=== PATIENT | female | born 1965 | race Caucasian/White ===

== ENCOUNTER 2018-05-05 13:01 | Outpatient (CLI) | payer OTHER | END 2018-05-05 13:23 | disposition home or self-care (01) | LOC: MAMO-SONO 13:01 | DX: N60.11 Diffuse cystic mastopathy of right breast (principal); N60.12 Diffuse cystic mastopathy of left breast; Z12.31 Encounter for screening mammogram for malignant neoplasm of breast ==

== ENCOUNTER 2018-09-02 13:43 | Outpatient (CLI) | payer OTHER | END 2018-09-02 13:46 | disposition home or self-care (01) | LOC: SONOGRAMA 13:43 → MAMO-SONO 09-03 13:15 | DX: R10.2 Pelvic and perineal pain (principal) ==

== ENCOUNTER 2018-09-27 14:44 | Outpatient (CLI) | payer OTHER | END 2018-09-27 15:11 | disposition home or self-care (01) | LOC: RAD 14:44 | DX: M54.2 Cervicalgia (principal) ==

== ENCOUNTER → 2018-09-27 | Outpatient (CLI) | payer OTHER | END | disposition home or self-care (01) | LOC: NUCLEAR 14:00 | DX: M81.0 Age-related osteoporosis without current pathological fracture (principal) ==

== ENCOUNTER → 2021-06-07 08:10 | Outpatient (CLI) | payer OTHER | END | disposition home or self-care (01) | LOC: SONOGRAMA 08:10 | PROVIDERS: ATTEND Internal Medicine | DX: R10.84 Generalized abdominal pain (principal) ==

== ENCOUNTER 2021-06-10 12:36 | Outpatient (CLI) | payer OTHER | END 2021-06-10 13:00 | disposition home or self-care (01) | LOC: MAMO-SONO 12:36 | PROVIDERS: ATTEND Internal Medicine | DX: N60.11 Diffuse cystic mastopathy of right breast (principal); N60.12 Diffuse cystic mastopathy of left breast ==

== ENCOUNTER 2022-08-13 13:22 | Outpatient (CLI) | payer OTHER | END 2022-08-13 14:15 | disposition home or self-care (01) | LOC: MAMO-SONO 13:22 | PROVIDERS: ATTEND Internal Medicine | DX: N60.11 Diffuse cystic mastopathy of right breast (principal); N60.12 Diffuse cystic mastopathy of left breast; M26.609 Unspecified temporomandibular joint disorder, unspecified side ==

== ENCOUNTER 2023-01-19 12:46 | Outpatient (CLI) | payer OTHER | END 2023-01-19 12:55 | disposition home or self-care (01) | LOC: SONOGRAMA 12:46 | PROVIDERS: ATTEND Internal Medicine | DX: N60.11 Diffuse cystic mastopathy of right breast (principal) ==

== ENCOUNTER 2024-04-21 11:51 | Emergency (ER) | payer OTHER ==
[~2024-04-21] VITALS: Ht 154.9 cm; Wt 76.2 kg
[2024-04-21] MEDS ORDERED: TAMSULOSIN HCL 0.4 MG CAP PO ONE ×2 (13:15→13:32)
[2024-04-21] MEDS ORDERED: KETOROLAC TROMETHAMINE 60 MG VIAL IM ONE ×2 (13:15→13:32)
[2024-04-21 14:16] LABS: HEMATOCRIT 41.5 % (36.0-45.00); HEMOGLOBIN 13.8 g/dL (12.0-15.00); MEAN CELL VOLUME 88.1 fL (80.00-100.00); MEAN CORPUSCULAR HEMOGLOBIN 29.3 pg (27.00-32.0); MEAN CORPUSCULAR HGB CONC 33.3 g/dl (32.0-36.0); PLATELET COUNT 304 K/uL (150-450); RED BLOOD COUNT 4.71 M/uL (4.00-6.00)
[2024-04-21 14:35] LABS: PH,URINE 6.5 (5.0-8.0); URINE APPEARANCE Clear; URINE BILIRRUBIN Negative (NEGATIVE); URINE BLOOD Moderate; URINE COLOR Yellow; URINE GLUCOSE Negative (NEGATIVE); URINE LEUKOCYTE Small; URINE NITRATE Negative; URINE PROTEIN 30 (NEGATIVE); URINE UROBILINOGEN 0.2 E.U./dl
[2024-04-21 14:37] LABS: URINE BACTERIA 646.1 uL (0.0-1933); URINE CAST 2.06 uL (0.0-1.40); URINE RBC 184.8 uL (0.0-20.8); URINE WBC 95.7 uL (0.0-23.2)
[2024-04-21 15:25] LABS: URINE KETONE 40 (NEGATIVE)
== END 2024-04-21 17:22 | disposition home or self-care (01) ==
LOC: ER 11:53
PROVIDERS: Emergency Medicine
DX: N20.0 Calculus of kidney (principal); R10.9 Unspecified abdominal pain; Z88.8 Allergy status to other drugs, medicaments and biological substances

== ENCOUNTER 2024-04-23 12:32 | Inpatient (IN) | payer OTHER ==
[~2024-04-23] VITALS: Ht 157.5 cm; Wt 159.7 kg
[2024-04-23] MEDS ORDERED: CLONAZEPAM1 M1 PO (13:25)
[2024-04-23] MEDS ORDERED: 0.9 % SODIUM CHLORIDE 1,000 ML IV ONE (13:45)
[2024-04-23] MEDS ORDERED: KETOROLAC TROMETHAMINE 30 MG VIAL ONE ×2 (13:57→20:43)
[2024-04-23] MEDS ORDERED: CEFTRIAXONE SODIUM 1,000 MG VIAL ONE (13:58)
[2024-04-23] MEDS ORDERED: ONDANSETRON HCL 2 MG/ML VIAL ONE (13:58)
[2024-04-23] MEDS ORDERED: ACETAMINOPHEN 500 MG GEL..CAP PO ONE ×2 (13:58→14:00)
[2024-04-23] MEDS ORDERED: HYOSCYAMINE SULFATE 0.125 MG TAB.SUBL ONE (13:58)
[2024-04-23] MEDS ORDERED: HYOSCYAMINE SULFATE 0.125 MG TAB.SUBL SL ONE (14:00)
[2024-04-23] MEDS ORDERED: KETOROLAC TROMETHAMINE 15 MG VIAL IV ONE (14:00)
[2024-04-23] MEDS ORDERED: ONDANSETRON HCL 2 MG/ML VIAL IV ONE (14:00)
[2024-04-23] MEDS ORDERED: CEFTRIAXONE SODIUM 1,000 MG VIAL IV ONE (14:00)
[2024-04-23 14:43] LABS: HEMOGLOBIN 12.2 g/dL (12.0-15.00); MEAN CELL VOLUME 86.6 fL (80.00-100.00); MEAN CORPUSCULAR HEMOGLOBIN 29.5 pg (27.00-32.0); PLATELET COUNT 214 K/uL (150-450); RED BLOOD COUNT 4.15 M/uL (4.00-6.00)
[2024-04-23 14:44] LABS: PH,URINE 6.5 (5.0-8.0); URINE APPEARANCE Clear; URINE BILIRRUBIN Negative (NEGATIVE); URINE BLOOD Moderate; URINE COLOR Yellow; URINE GLUCOSE Negative (NEGATIVE); URINE KETONE Negative (NEGATIVE); URINE LEUKOCYTE Moderate; URINE NITRATE Negative; URINE PROTEIN Negative (NEGATIVE); URINE UROBILINOGEN 0.2 E.U./dl
[2024-04-23 14:45] LABS: URINE BACTERIA 937.2 uL (0.0-1933); URINE EPITHELIAL CELLS 15.9 uL (0.0-38.8); URINE WBC 67.8 uL (0.0-23.2)
[2024-04-23 15:08] LABS: ALBUMIN 2.9 gm/dL (3.4-5.0); CALCIUM 8.9 mg/dL (8.5-10.1); CREATININE SERUM 0.66 mg/dL (0.55-1.02); GFR 91.98; GLOBULINA 4.7 G/DL (2.4-3.5); TOTAL PROTEIN 7.6 gm/dL (6.4-8.2)
[2024-04-23 15:12] LABS: POTASSIUM 2.42 mEq/L (3.5-5.1)
[2024-04-23] MEDS ORDERED: POTASSIUM CHLORIDE IN 0.9%NACL 40 MEQ/1,000 ML PIGGYBAG IV ONE (15:15)
[2024-04-23] MEDS ORDERED: CEFTRIAXONE SODIUM 2,000 MG in DEXTROSE 5 % IN WATER 100 ML IV SCH (20:13)
[2024-04-23] MEDS ORDERED: KETOROLAC TROMETHAMINE 30 MG VIAL IV PRN (20:15)
[2024-04-23] MEDS ORDERED: 0.9 % SODIUM CHLORIDE 1,000 ML IV SCH (20:15)
[2024-04-23] MEDS ORDERED: ACETAMINOPHEN 325 MG TABLET PO PRN (20:15)
[2024-04-23] MEDS ORDERED: CLONAZEPAM 1 MG TABLET PO PRN (20:30)
[2024-04-23 23:16] VITALS: BP 151/85; O2SAT 96
[2024-04-24] MEDS ORDERED: POTASSIUM CHLORIDE IN WATER 40 MEQ/100 ML PIGGYBAG IV SCH (01:00)
[2024-04-24 08:15] LABS: ALBUMIN 2.8 gm/dL (3.4-5.0); BILIRUBIN TOTAL 0.61 mg/dL (0.3-1.2); CALCIUM 8.2 mg/dL (8.5-10.1); CREATININE SERUM 0.65 mg/dL (0.55-1.02); GFR 93.62; GLOBULINA 3.5 G/DL (2.4-3.5); POTASSIUM 3.29 mEq/L (3.5-5.1); TOTAL PROTEIN 6.3 gm/dL (6.4-8.2)
[2024-04-24] MEDS ORDERED: TAMSULOSIN HCL 0.4 MG CAP PO SCH (09:00)
[2024-04-24] MEDS ORDERED: FAMOTIDINE/PF 20 MG/2 ML VIAL IV SCH (09:00)
[2024-04-24 10:07] VITALS: BP 147/76; O2SAT 97
[2024-04-24] MEDS ORDERED: TAMS0.4C PO (12:37)
[2024-04-24] MEDS ORDERED: MACROBID 100 M100 MG PO (12:38)
[2024-04-24] MEDS ORDERED: TRAM1TAB98 PO (12:39)
[2024-04-24] MEDS ORDERED: POTASSIUM CHLORIDE IN WATER 100 ML IV NR (12:41)
[2024-04-24] MEDS ORDERED: POTASSIUM BICARBONATE/CIT AC 25 MEQ TABLET.EFF PO STA (13:02)
[2024-04-24] MEDS ORDERED: NITROFURANTOIN MONOHYD/M-CRYST 100 MG CAPSULE PO SCH (21:00)
== END 2024-04-24 14:12 | disposition home or self-care (01) | DRG 694 ==
LOC: ER 12:34 → MEDJ 22:19
PROVIDERS: General Practice; ADMIT Internal Medicine; ATTEND Internal Medicine
DX: N20.1 Calculus of ureter (principal); E87.6 Hypokalemia; Z20.822 Contact with and (suspected) exposure to COVID-19

== ENCOUNTER 2024-09-14 09:25 | Outpatient (CLI) | payer OTHER ==
[~2024-09-14 09:25] MED LIST: CLONAZEPAM1 M1 PO; MACROBID 100 M100 MG PO; TAMS0.4C PO; TRAM1TAB98 PO
== END 2024-09-14 09:37 | disposition home or self-care (01) ==
LOC: MRI 09:25
PROVIDERS: ATTEND Psychiatry & Neurology Clinical Neurophysiology
DX: R51.9 Headache, unspecified (principal)
CPT/HCPCS: 70551

== ENCOUNTER 2024-09-28 08:23 | Outpatient (CLI) | payer OTHER | END 2024-09-28 08:28 | disposition home or self-care (01) | LOC: SONOGRAMA 08:23 | PROVIDERS: ATTEND Internal Medicine | DX: R10.84 Generalized abdominal pain (principal); N20.1 Calculus of ureter ==